=== PATIENT | female | born 1985 | race American Indian/Alaskan Native ===

== ENCOUNTER 2016-06-12 17:56 | Inpatient (IN) | payer MEDICAID ==
[2016-06-12] MEDS ORDERED: MINERAL OIL PO PRN (19:15)
[2016-06-12] MEDS ORDERED: SUBLIMAZE IV PRN (19:15)
[2016-06-12] MEDS ORDERED: BRETHINE SUB-Q PRN (19:15)
[2016-06-12] MEDS ORDERED: ZOFRAN IV PRN (19:15)
[2016-06-12] MEDS ORDERED: XYLOCAINE 2% INFILTRATI ONE (19:15)
[2016-06-12] MEDS ORDERED: ePHEDrine SULFATE IV PRN ×2 (19:15→20:50)
--- NOTE | 2016-06-12 19:24 | History and Physical Report ---
History of Present Illness Date of admission: 06/12/16 18:34 History of present illness: EDC Confirmation: 06/19/2016 Gestational Age: 9 2/7 weeks Past History : 3 Living Children: 0 Para: 0 Aborta: 2 Elect. Ab: 2 Spont. Ab: 0 # 1 Delivery date: 2013 Weeks Gestation: 10 Comments: EAB # 2 Delivery date: 2015 Weeks Gestation: 5 Comments: EAB Past Medical History: Negative Past Medical History Past Surgical History: Negative Past Surgical History Past Medical History Surgery (Non-dispersion mixer): Negative Past Surgical History Abnormal PAP: positive, 08/2015 GAVIN Exposure: negative Infertility: negative Uterine Anomaly: negative Uterine Surgery (not C/S): negative Other Gynecologic Problems: negative Family Hx: Mom-Diabetes; CHF; HTN / Maternal GM-HTN Father-HTN / Paternal GM-Diabetes; HTN Infection History Hx of STD: HPV HIV Risk Eval: no Hepatitis B Risk Eval: low risk Personal hx. of genital herpes: yes Rash, Viral, or Febrile illness since last LMP? no Varicella/Chicken Pox Status: Previous Disease TB Risk: no Genetic History Congenital Heart Defect: Mom: no Dad: no Tanner Disease: Mom: no Dad: no Thalassemia Mom: no Dad: no Neural Tube Defect Mom: no Dad: no Down's Syndrome Mom: no Dad: no Nick-Sachs Mom: no Dad: no Sickle Cell Disease/Trait Mom: no Dad: no Hemophilia Mom: no Dad: no Muscular Dystrophy Mom: no Dad: no Cystic Fibrosis Mom: no Dad: no Tristan Chorea Mom: no Dad: no Mental Retardation Mom: no Dad: no Fragile X Mom: no Dad: no Other Genetic/Chromosomal Disorder Mom: no Dad: no Child w/other defect Mom: no Dad: no Enviromental Exposures Xray Exposure: no Medication, drug, or alcohol use since LMP: no Chemical/Other Exposure: no Exposure to Cat Liter: no Hx of Parvovirus (Fifth Disease): no Occupational Exposure to Children: none Active Medications: None Current Allergies: No known allergies Laboratory Results Date/Time Collected: 11/17/2015 Routine Urinalysis Leukocytes: negative Nitrite: negative Urobilinogen: negative Protein: Negative Blood: negative Ketone: negative Bilirubin: negative Glucose: Negative Urine HCG: positive Review of Systems General Denies fever, chills, sweats, anorexia, fatigue, weakness, malaise, weight loss and sleep disorder. Denies nausea, vomiting, headache, swelling of legs, abdominal pain, vaginal discharge, vaginal bleeding and contractions. Denies vaginal discharge, incontinence, dysuria, hematuria, urinary frequency, amenorrhea, menorrhagia, abnormal vaginal bleeding, pelvic pain, genital sores, decreased libido, painful periods, painful sex, urinary urgency, hot flashes, vaginal dryness, vaginal itching and vaginal odor. CV Denies chest pains, palpitations, syncope, dyspnea on exertion, orthopnea, PND and peripheral edema. Resp Denies cough, dyspnea at rest, excessive sputum, hemoptysis, wheezing and pleurisy. GI Denies nausea, vomiting, diarrhea, constipation, change in bowel habits, abdominal pain, melena, hematochezia, jaundice, gas/bloating, indigestion/ heartburn, dysphagia and odynophagia. Endo Denies cold intolerance, heat intolerance, polydipsia, polyphagia, polyuria and unusual weight change. Breast Denies left breast lump, right breast lump, nipple discharge, bloody discharge from nipple, breast pain, abnormal mammogram and breast enlargement. MS Denies back pain, joint pain, joint swelling, muscle cramps, muscle weakness, stiffness, arthritis, sciatica, restless legs, leg pain at night and leg pain with exertion. Derm Denies rash, itching, dryness and suspicious lesions. Neuro Denies paralysis, paresthesias, headache, seizures, tremors, vertigo, transient blindness, frequent falls, frequent headaches and difficulty walking. Psych Denies depression, anxiety, irritability and mood swings. Eyes Denies blurring, diplopia, irritation, discharge, vision loss, eye pain and photophobia. ENT Denies earache, ear discharge, tinnitus, decreased hearing, nasal congestion, nosebleeds, sore throat and hoarseness. Allergy Denies urticaria, allergic rash, hay fever and recurrent infections. Heme Denies abnormal bruising, bleeding and enlarged lymph nodes. PHYSICAL EXAM Skin no significant abnormal lesions or rashes Chest: respiratory effort normal Musculoskeletal: grossly normal ROM in brenda Past History - Obstetrical History Expected Date of Delivery: 06/19/16 Actual Gestation: 39 Week(s) 0 Day(s) : 3 Para: 0 Induced : 2 Number of Living Children: 0 Medications and Allergies Allergies Allergy/AdvReac Type Severity Reaction Status Date / Time No Known Allergies Allergy Unverified 06/12/16 18:04 Active Meds: Active Medications Lactated Ringer's (Lactated Ringers) 1,000 mls @ 125 mls/hr IV DIRECT PAWEL Oxytocin 20 unit/ Sodium (Chloride) 1,002 mls @ 0 mls/hr IV DIRECT PAWEL PRN Reason: As Directed - Vital Signs Vital signs: Vital Signs Pulse Pulse Ox 166 H 82 L 06/12/16 18:02 06/12/16 18:02 Temp Pulse Resp BP Pulse Ox 136 H 131/70 82 L 06/12/16 18:21 06/12/16 18:03 06/12/16 18:21 - Physical Exam Breasts: Positive: deferred Cardiovascular: Regular rate, Normal S1, Normal S2 Lungs: Positive: Normal air movement Abdomen: Positive: normal appearance, soft, normal bowel sounds. Negative: distention, tenderness Genitourinary (Female): Positive: normal external genitalia Vulva: both: normal Vagina: Positive: normal moisture. Negative: discharge Cervix: Negative: lesion, discharge Uterus: Positive: normal size, normal contour Adnexa: both: normal Anus/Rectum: Positive: normal perianal skin, heme negative. Negative: rectal mass, hemorrhoids Extremities: Deep Tendon Reflex Grade: Normal +2 - Obstetrical Cervical Dilatation: 6 (clear fluid Pt states ROM prior to arrival) Cervical Effacement Percentage: 100 station: -1 Uterine Contraction Pattern: Irregular Uterine Contraction Intensity: Moderate Results All other labs normal. Laboratory Data-Patient Name: GIOVANNI LOPEZ Test Date Result Blood Type 12/22/2015 A Rh 12/22/2015 Positive Antibody Screen negative Rubella 12/22/2015 IMMUNE Serology (RPR) 05/17/2016 nonreactive HBsAg 12/22/2015 Negative Hemoglobin 03/01/2016 9.7 Hematocrit 03/01/2016 30.0 Platelets 12/22/2015 272 [id number] Chlamydia DNA 05/17/2016 Negative GC DNA/Culture 05/17/2016 Urine Culture 12/22/2015 Final report Group B Strep cult negative PAP HIV 05/17/2016 negative AFP/Quad Screen Glucola Test 3hr GTT (Fasting) 1 hr 2 hr 3 hr [facility]-Patient Name:GIOVANNI LOPEZ Test Date Result Varicella Ab Sickle Cell 12/22/2015 Negative PPD Fibronectin Cystic Fibrosis Parvovirus TSH Free T4 Hepatitis C ALT AST Uric Acid Creatinine 24 hr Urine Protein SRINIVASAN Assessment and Plan @ 39 weeks with SROM @ 1600 clear fluid with onset of labor. Pt 5cm on arrival to Triage Her exam on my arrival 6,100,-1 with clear fluid noted. GBS negative Orders in EMR
[2016-06-12 19:59] LABS: Hematocrit 35.4 % (30.3-42.9); Hemoglobin 12.1 gm/dl (10.1-14.3); Mean Corpuscular HGB Conc 34 % (30-34); Mean Corpuscular Hemoglobin 29 pg (28-32); Mean Corpuscular Volume 85 fl (79-97); Platelet Count 214 K/mm3 (140-440); Red Blood Count 4.15 M/mm3 (3.65-5.03); Red Cell Distribution Width 13.7 % (13.2-15.2); White Blood Count 9.2 K/mm3 (4.5-11.0)
[2016-06-12] MEDS ORDERED: LACTATED RINGERS 1,000 ML IV SCH ×2 (20:00)
[2016-06-12] MEDS ORDERED: PITOCin/NS 30 UNIT/500ML 30 UNITS/500 ML BAG IV SCH (20:00)
[2016-06-12] MEDS ORDERED: PITOCin/NS 20 UNIT/1000ML DRIP 20 UNITS/1,000 ML BAG IV SCH (20:00)
[2016-06-12] MEDS ORDERED: PITOCin 20 UNIT in NACL 0.9% 1000 ML 1,000 ML IV SCH (20:00)
[2016-06-12] MEDS ORDERED: NARCAN 2 MG/2 ML IV PRN (20:50)
--- NOTE | 2016-06-12 20:50 | Anesthesia Consultation ---
Anesthesia Consult and Med Hx Date of service: 06/12/16 - Airway Anesthetic Teeth Evaluation: Good ROM Head & Neck: Adequate Mental/Hyoid Distance: Adequate Mallampati Class: Class II Intubation Access Assessment: Probably Good - Pulmonary Exam CTA: Yes - Cardiac Exam Cardiac Exam: RRR - Pre-Operative Health Status ASA Pre-Surgery Classification: ASA2 Proposed Anesthetic Plan: Epidural, Spinal - Pulmonary Hx Asthma: No COPD: No Hx Pneumonia: No - Endocrine Hx End Stage Renal Disease: No - Additional Comments Anesthesia Medical History Comments: +
[2016-06-12] MEDS ORDERED: fentaNYL-BUPIV 2 MCG/ML-0.125% 200 MCG/100 ML BAG EPIDURAL SCH (21:00)
--- NOTE | 2016-06-12 22:16 | Procedure Note ---
OB Delivery Note - Delivery Date of Delivery: 06/12/16 Child Psychologist: JANAE MARTINEZ Estimated blood loss: 300cc - Vaginal Delivery presentation: vertex Delivery position: OA Intrapartum events: none Delivery induction: none Delivery augmentation: pitocin Delivery monitor: external uterine, internal FHT Route of delivery: Delivery placenta: spontaneous Delivery cord: 3 umbilical vessels Episiotomy: none Delivery laceration: 1st degree (right labia) Delivery repair: vicryl Anesthesia: epidural Delivery comments: live born female over intact perineum Baby to mom's abdomen Cord blood obt Placenta and membrane del complete and intact, 3 vessel cord. 8/8, baby mild tachypenia, RT in to assess. EBL 300ml, wgt 5-13. Right labial tear repaired with 3-0 vicryl. Pitocin IVFs Mom and baby remain LDR stable. - Infant A at 1 minute: 8 at 5 minutes: 8 Gender: Female (wgt 5-13)
[2016-06-12] MEDS ORDERED: DULCOLAX PR PRN (22:19)
[2016-06-12] MEDS ORDERED: TYLENOL PO PRN (22:19)
[2016-06-12] MEDS ORDERED: LANSINOH TP PRN (22:19)
[2016-06-12] MEDS ORDERED: MILK OF MAGNESIA PO PRN (22:19)
[2016-06-12] MEDS ORDERED: TUCKS PAD TP PRN (22:19)
[2016-06-12] MEDS ORDERED: PHENERGAN PO PRN (22:19)
[2016-06-12] MEDS ORDERED: DERMOPLAST TP PRN (22:19)
[2016-06-12] MEDS ORDERED: NORCO 5/325 PO PRN (22:19)
[2016-06-12] MEDS ORDERED: BENADRYL PO PRN (22:19)
[2016-06-12] MEDS ORDERED: SODIUM CHLORIDE FLUSH SYRINGE 10 ML IV PRN (23:00)
[2016-06-13] MEDS: MOTRIN PO SCH ×3 (06:18→18:18)
--- NOTE | 2016-06-13 08:59 | Progress Note ---
Assessment and Plan - Patient Problems (1) Spontaneous vaginal delivery Onset Date: ~06/13/16 Current Visit: Yes Status: Acute Plan to address problem: Pt w/o complaint Req d/c for tomorrow VSS FF below umb Lochia small Perineum intact Labial repair slight swelling intact H&H to be drawn @ 1200 Doing well s/ p vag del P: continue pathway Anticipate d/c tomorrow if stable. Subjective - Subjective Date of service: 06/13/16 (req d/c tomorrow) Principal diagnosis: Day #1 Interval history: EDC Confirmation: 06/19/2016 Gestational Age: 9 2/7 weeks Past History : 3 Living Children: 0 Para: 0 Aborta: 2 Elect. Ab: 2 Spont. Ab: 0 # 1 Delivery date: 2013 Weeks Gestation: 10 Comments: EAB # 2 Delivery date: 2014 Weeks Gestation: 5 Comments: EAB Past Medical History: Negative Past Medical History Past Surgical History: Negative Past Surgical History Past Medical History Surgery (Non-cartoonist special effects): Negative Past Surgical History Abnormal PAP: positive, 08/2015 GAVIN Exposure: negative Infertility: negative Uterine Anomaly: negative Uterine Surgery (not C/S): negative Other Gynecologic Problems: negative Family Hx: Mom-Diabetes; CHF; HTN / Maternal GM-HTN Father-HTN / Paternal GM-Diabetes; HTN Infection History Hx of STD: HPV HIV Risk Eval: no Hepatitis B Risk Eval: low risk Personal hx. of genital herpes: yes Rash, Viral, or Febrile illness since last LMP? no Varicella/Chicken Pox Status: Previous Disease TB Risk: no Genetic History Congenital Heart Defect: Mom: no Dad: no Tanner Disease: Mom: no Dad: no Thalassemia Mom: no Dad: no Neural Tube Defect Mom: no Dad: no Down's Syndrome Mom: no Dad: no Nick-Sachs Mom: no Dad: no Sickle Cell Disease/Trait Mom: no Dad: no Hemophilia Mom: no Dad: no Muscular Dystrophy Mom: no Dad: no Cystic Fibrosis Mom: no Dad: no Tristan Chorea Mom: no Dad: no Mental Retardation Mom: no Dad: no Fragile X Mom: no Dad: no Other Genetic/Chromosomal Disorder Mom: no Dad: no Child w/other defect Mom: no Dad: no Enviromental Exposures Xray Exposure: no Medication, drug, or alcohol use since LMP: no Chemical/Other Exposure: no Exposure to Cat Liter: no Hx of Parvovirus (Fifth Disease): no Occupational Exposure to Children: none Active Medications: None Current Allergies: No known allergies Laboratory Results Date/Time Collected: 11/17/2015 Routine Urinalysis Leukocytes: negative Nitrite: negative Urobilinogen: negative Protein: Negative Blood: negative Ketone: negative Bilirubin: negative Glucose: Negative Urine HCG: positive Review of Systems General Denies fever, chills, sweats, anorexia, fatigue, weakness, malaise, weight loss and sleep disorder. Denies nausea, vomiting, headache, swelling of legs, abdominal pain, vaginal discharge, vaginal bleeding and contractions. Denies vaginal discharge, incontinence, dysuria, hematuria, urinary frequency, amenorrhea, menorrhagia, abnormal vaginal bleeding, pelvic pain, genital sores, decreased libido, painful periods, painful sex, urinary urgency, hot flashes, vaginal dryness, vaginal itching and vaginal odor. CV Denies chest pains, palpitations, syncope, dyspnea on exertion, orthopnea, PND and peripheral edema. Resp Denies cough, dyspnea at rest, excessive sputum, hemoptysis, wheezing and pleurisy. GI Denies nausea, vomiting, diarrhea, constipation, change in bowel habits, abdominal pain, melena, hematochezia, jaundice, gas/bloating, indigestion/ heartburn, dysphagia and odynophagia. Endo Denies cold intolerance, heat intolerance, polydipsia, polyphagia, polyuria and unusual weight change. Breast Denies left breast lump, right breast lump, nipple discharge, bloody discharge from nipple, breast pain, abnormal mammogram and breast enlargement. MS Denies back pain, joint pain, joint swelling, muscle cramps, muscle weakness, stiffness, arthritis, sciatica, restless legs, leg pain at night and leg pain with exertion. Derm Denies rash, itching, dryness and suspicious lesions. Neuro Denies paralysis, paresthesias, headache, seizures, tremors, vertigo, transient blindness, frequent falls, frequent headaches and difficulty walking. Psych Denies depression, anxiety, irritability and mood swings. Eyes Denies blurring, diplopia, irritation, discharge, vision loss, eye pain and photophobia. ENT Denies earache, ear discharge, tinnitus, decreased hearing, nasal congestion, nosebleeds, sore throat and hoarseness. Allergy Denies urticaria, allergic rash, hay fever and recurrent infections. Heme Denies abnormal bruising, bleeding and enlarged lymph nodes. PHYSICAL EXAM Skin no significant abnormal lesions or rashes Chest: respiratory effort normal Musculoskeletal: grossly normal ROM in brenda Patient reports: appetite normal, voiding normally, pain well controlled, ambulating normally : doing well Objective - Vital Signs Latest vital signs: Vital Signs Temp Pulse Pulse Resp BP BP Pulse Ox 06/13/16 04:00 98.6 F 72 22 133/82 06/13/16 00:30 98.6 F 84 22 136/84 06/12/16 23:34 86 126/98 06/12/16 22:59 94 H 148/96 06/12/16 22:44 101 H 143/91 06/12/16 22:14 112 H 133/85 06/12/16 22:06 101 H 140/88 06/12/16 21:59 102 H 138/86 06/12/16 21:45 135 H 98 06/12/16 21:44 100 H 132/86 06/12/16 21:30 128 H 98 06/12/16 21:29 117 H 92 06/12/16 21:25 108 H 100 06/12/16 21:24 139 H 154/102 06/12/16 21:22 129 H 172/114 06/12/16 21:20 121 H 175/93 100 06/12/16 21:18 118 H 173/97 06/12/16 21:16 114 H 150/74 06/12/16 21:15 130 H 99 06/12/16 21:14 108 H 150/66 06/12/16 21:12 101 H 146/90 06/12/16 21:10 86 143/76 98 06/12/16 21:09 100 H 164/77 06/12/16 21:07 100 H 159/94 06/12/16 21:05 97 H 98 06/12/16 21:02 104 H 141/78 06/12/16 21:00 117 H 170/83 100 06/12/16 20:59 111 H 161/77 06/12/16 20:56 101 H 156/98 06/12/16 20:55 79 71 L 06/12/16 20:54 109 H 150/85 06/12/16 20:52 107 H 169/110 06/12/16 20:51 96 H 147/91 06/12/16 20:50 96 H 145/88 100 06/12/16 20:48 93 H 137/85 06/12/16 20:45 101 H 100 06/12/16 20:44 100 H 58 L 06/12/16 20:28 98.3 F 06/12/16 20:21 99 H 143/92 06/12/16 20:12 16 06/12/16 19:51 93 H 152/91 06/12/16 18:21 136 H 82 L 06/12/16 18:07 84 82 L 06/12/16 18:06 278 H 82 L 06/12/16 18:05 313 H 82 L 06/12/16 18:04 300 H 45 L 06/12/16 18:03 313 H 131/70 94 06/12/16 18:02 44 L 82 L Intake and Output 06/12/16 06/13/16 06/13/16 22:59 06:59 14:59 Intake Total 125 Output Total 900 Balance -775 Intake: IV 125 PITOCin/NS 20 UNIT/1000ML 125 DRIP 20 units In 1,000 ml @ 125 mls/hr IV DIRECT PAWEL Rx#:[id number] Output: Urine 900 Void 900 Other: Total, Output Amount 900 # Voids Void 1 Weight 180 lb Estimated Blood Loss 300 - Exam Breasts: Present: normal, Cardiovascular: Present: Regular rate Lungs: Present: Clear to auscultation, Normal air movement Abdomen: Present: normal appearance, soft, normal bowel sounds Vulva: both: normal Uterus: Present: normal, fundal height below umbilicus Extremities: Present: normal Deep Tendon Reflex Grade: Normal +2 Incision: Present: dry, intact
[2016-06-13] MEDS ORDERED: FLUARIX QUAD 2016-2017(36 MOS+) IM ONE (12:00)
[2016-06-13] MEDS: COLACE PO SCH (12:22)
[2016-06-13] MEDS: PRENATAL VITAMIN PO SCH (12:22)
[2016-06-13 14:32] LABS: Hematocrit 32.1 % (30.3-42.9); Hemoglobin 10.4 gm/dl (10.1-14.3)
--- NOTE | 2016-06-13 16:52 | Progress Note ---
Subjective Date of service: 06/13/16 Principal diagnosis: Day #1 Interval history: No anesthetic related complaints Objective - Constitutional Vitals: Vital Signs - 12hr 06/13/16 06/13/16 08:02 15:37 Temperature 98.5 F 98.6 F Pulse Rate [ 74 98 H From Monitor] Respiratory 16 20 Rate Blood Pressure 114/69 133/77 [Right Arm] - Labs CBC & Chem 7: 06/13/16 13:12
[2016-06-13] MEDS ORDERED: M-M-R II VACCINE SUB-Q ONE (22:19)
[2016-06-14] MEDS: MOTRIN PO SCH ×2 (00:10→12:08)
[2016-06-14] MEDS: COLACE PO SCH ×2 (00:10→09:58)
[2016-06-14] MEDS ORDERED: BOOSTRIX IM ONE (06:00)
[2016-06-14 07:49] LABS: Alanine Aminotransferase 18 units/L (7-56); Lactate Dehydrogenase 185 units/L (91-180)
--- NOTE | 2016-06-14 08:09 | Discharge Summary ---
Providers - Providers Date of Admission: 06/12/16 18:34 Date of discharge: 06/14/16 (pt w/o complaint Desires d/c today) Attending physician: EASTON ORDAZ Primary care physician: EASTON ORDAZ Hospitalization Reason for admission: active labor Delivery: Episiotomy: none Laceration: none Other procedures: none complications: none Discharge diagnosis: IUP at term delivered baby: female Hospital course: uncomplicated vaginal delivery elevated BPs noted - PIH labs drawn Pt aware of concerns Pt w/o complaint this AM Denies VILLARREAL, blurred vision, chest pain. Requesting to be seen by , nurse made aware. BP 140s/80s FF below umb Lochia small Perineum intact H&H Doing well s/p vag delivery P: d/c home today with instructions Pt aware d/c will be this afternoon after labs are resulted. Condition at discharge: Good Disposition: DISCHARGED TO HOME OR SELFCARE - Discharge Diagnoses (1) Spontaneous vaginal delivery Status: Acute Comment: RTO 4 weeks PP care Plan - Discharge Medications Prescriptions: Ibuprofen [Motrin 800 MG tab] 800 mg PO TID PRN #30 tablet PRN Reason: Pain - Provider Discharge Summary Activity: routine, no sex for 6 weeks, no heavy lifting 4 weeks, no strenuous exercise Diet: routine Instructions: routine Additional instructions: [] Smoking cessation referral if applicable(refer to patient education folder for contact #) [] Refer to [facility] Booklet Call your doctor immediately for: * Fever > 100.5 * Heavy vaginal bleeding ( >1 pad per hour) * Severe persistent headache * Shortness of breath * Reddened, hot, painful area to leg or breast * Drainage or odor from incision. * Keep incision clean and dry at all times and follow doctor's instructions regarding bathing/showering - Follow up plan Follow up: EASTON ORDAZ MD [Primary Care Provider] - 07/13/16 (Congratulations! Please call [phone] to schedule your visit in 4 weeks. Call with headache, blurred vision, chest pain. Call with any concerns.)
[2016-06-14 08:16] LABS: Hematocrit 30.4 % (30.3-42.9); Hemoglobin 10.1 gm/dl (10.1-14.3); Mean Corpuscular HGB Conc 33 % (30-34); Mean Corpuscular Hemoglobin 29 pg (28-32); Mean Corpuscular Volume 87 fl (79-97); Platelet Count 173 K/mm3 (140-440); Red Blood Count 3.51 M/mm3 (3.65-5.03); Red Cell Distribution Width 14.1 % (13.2-15.2); White Blood Count 9.1 K/mm3 (4.5-11.0)
[2016-06-14 08:53] LABS: Bacteria,Urine 1+ /HPF (Negative); Bilirubin,Urine NEG (Negative); Blood,Urine LG (Negative); Ketones,Urine NEG (Negative); Leukocyte Esterase,Urine TR (Negative); Mucus,Urine FEW /HPF; Nitrite,Urine NEG (Negative); Urobilinogen,Urine < 2.0 mg/dL (<2.0)
[2016-06-14 08:56] LABS: RBC,Urine > 182.0 /HPF (0.0-6.0)
[2016-06-14] MEDS: PRENATAL VITAMIN PO SCH (09:58)
[2016-06-14] MEDS ORDERED: FLUARIX QUAD 2016-2017(36 MOS+) IM ONE (12:00)
[2016-06-14 17:45] VITALS: BP 118/66
== END 2016-06-14 15:55 | disposition home or self-care (01) | DRG 775 ==
LOC: TRG 17:56 → LD 18:34 → OB 06-13 00:18
PROVIDERS: ADMIT Obstetrics & Gynecology; ATTEND Obstetrics & Gynecology
PROC: 0HQ9XZZ Repair Perineum Skin, External Approach (ICD-10-PCS; principal; 2016-06-12)
PROC: 10E0XZZ Delivery of Products of Conception, External Approach (ICD-10-PCS; principal; 2016-06-12)
DX: O42.92 Full-term premature rupture of membranes, unspecified as to length of time between rupture and onset of labor (principal); O70.0 First degree perineal laceration during delivery; Z3A.39 39 weeks gestation of pregnancy; Z37.0 Single live birth
CPT/HCPCS: 36415; 81001; 82565; 83615; 84450; 84460; 84550; 85014; 85018; 85027; 86850; 86900; 86901; 90471; 90686; 90715; G0008; J2590; J3010; J7120